=== PATIENT | female | born 1995 | race Caucasian/White ===

== ENCOUNTER 2022-01-16 12:33 | Emergency (ER) | payer MEDICAID ==
[~2022-01-16] VITALS: Ht 160 cm; Wt 81.6 kg
[2022-01-16 13:01] VITALS: BP_SYST 114
[2022-01-16] MEDS ORDERED: ZIPRASIDONE HCL 20 MG CAPSULE (GEODON) PO ONE (13:15)
[2022-01-16 13:38] LABS: BASOPHILS % (AUTO) 0.4 % (0.0-2.0); EOSINOPHILS # (AUTO) 0.1 K/uL (0.0-0.4); EOSINOPHILS % (AUTO) 1.1 % (0.0-4.0); HEMATOCRIT 40.2 % (36-48); HEMOGLOBIN 13.3 g/dL (12.0-16.0); LYMPHOCYTES # (AUTO) 1.2 K/uL (1.0-5.5); MEAN CORPUSCULAR HEMOGLOBIN 28 pg (27-31); MEAN CORPUSCULAR HGB CONC 33 % (32-36); MEAN CORPUSCULAR VOLUME 85 fL (79.0-98.0); MONOCYTES # (AUTO) 0.4 K/uL (0.0-1.0); NEUTROPHILS # (AUTO) 5.4 K/uL (1.8-7.7); NEUTROPHILS % (AUTO) 75.5 % (40.0-70.0); PLATELET COUNT (AUTO) 325 K/uL (130-430); RED BLOOD CELL COUNT(AUTO) 4.72 MIL/uL (4.2-6.2); RED CELL DISTRIBUTION WIDTH 17.2 % (9.0-15.0); WHITE BLOOD COUNT (AUTO) 7.2 K/uL (4.8-10.8)
[2022-01-16 13:41] LABS: CALCIUM 7.9 mg/dL (8.4-11.0); CREATININE 0.71 mg/dL (0.55-1.30); POTASSIUM 3.5 mmol/L (3.5-5.1)
[2022-01-16 13:46] LABS: TOTAL BILIRUBIN 0.3 mg/dL (0.0-1.0)
[2022-01-16 18:44] LABS: BARBITURATE, URINE NEGATIVE (NEG <=200); URINE AMPHETAMINE NEGATIVE (NEG <=500)
[2022-01-16 18:45] LABS: BENZODIAZEPINE, URINE NEGATIVE (NEG <=150); CANNABINOID, URINE NEGATIVE (NEG <=50); COCAINE, URINE NEGATIVE (NEG <=150); METHAMPHETAMINES SCREEN,URINE NEGATIVE (NEG <=500); OPIATE, URINE NEGATIVE (NEG <=100); PHENCYCLIDINE SCREEN,URINE NEGATIVE (NEG <=25); UR TRICYCLIC ANTIDEPRESSANTS NEGATIVE (NEG <=300); URINE METHADONE NEGATIVE (NEG <=200); URINE OXYCODONE SCREEN NEGATIVE (NEG <=100); URINE PROPOXYPHENE SCREEN NEGATIVE (NEG <=300)
[2022-01-16 20:49] VITALS: BP_SYST 112
== END 2022-01-16 20:48 ==
LOC: SED 12:33
DX: R44.0 Auditory hallucinations (principal); Z20.822 Contact with and (suspected) exposure to COVID-19
CPT/HCPCS: 36415; 80053; 80307; 85025; 87426; 99285; G0482

== ENCOUNTER 2022-04-25 14:24 | Emergency (ER) | payer MEDICAID ==
[~2022-04-25] VITALS: Ht 162.6 cm; Wt 86.2 kg
[2022-04-25 14:25] VITALS: BP_SYST 156
--- NOTE | 2022-04-25 14:35 | NUR ---
Patient triaged and placed in waiting room. VSS and patient appears in no acute distress at this time. Accompanied by SELF, awaiting available bed, and MD notified of need for MSE.
--- NOTE | 2022-04-25 14:45 | NUR ---
PT STATES SHE HAD A BLOOD TEST AT HER PMD'S OFFICE, STATES THEY CALLED HER TO TELL HER SHE IS + FOR SYPHILLIS AND TO COME TO ER FOR TREATMENT. PT DENIES ANY SORES BUT THINKS SHE HAS IT IN HER MOUTH. NO ORAL SORES SEEN. PT STATES SHE IS NERVOUS ABOUT HAVING AN STD AND WANTS TO BE TREATED.
--- NOTE | 2022-04-25 15:10 | NUR ---
DR PUENTES TO TRIAGE ROOM TO EVALUATE PT.
[2022-04-25] MEDS ORDERED: PENICILLIN G BENZATHINE 1.2 MMU/2 ML SYR IM ONE (15:30)
[2022-04-25] MEDS ORDERED: TRAZ-250 PO (15:32)
[2022-04-25] MEDS ORDERED: GEO20 PO (15:32)
--- NOTE | 2022-04-25 15:59 | NUR ---
Assisted primary nurse in discharge of Patient gave written and verbal discharge instructions and verbalizes understanding. ER MD discussed with patient the results and treatment provided. Patient in stable condition. ID arm band removed. Opportunity for questions provided and answered. Medication side effect fact sheet provided.
[2022-04-25 16:00] VITALS: BP_SYST 156
== END 2022-04-25 15:59 | disposition home or self-care (01) ==
LOC: SED 14:24
DX: A53.9 Syphilis, unspecified (principal); Z76.0 Encounter for issue of repeat prescription; R53.1 Weakness; Z79.899 Other long term (current) drug therapy
CPT/HCPCS: 99283; 96372; J0561

== ENCOUNTER 2022-06-20 14:32 | Emergency (ER) | payer MEDICAID ==
[~2022-06-20] VITALS: Ht 162.6 cm; Wt 90.7 kg
[2022-06-20 14:32] VITALS: BP_SYST 139
[~2022-06-20 14:32] MED LIST: GEO20 PO; TRAZ-250 PO
--- NOTE | 2022-06-20 14:35 | NUR ---
BROUGHT BACK TO BED #5 AND TRIAGED. REPORT GIVEN TO MANA
--- NOTE | 2022-06-20 14:50 | NUR ---
PT BIB SELF AWAKE AND ALERT, AOX4. PT C/O BEING LOW ON HER PYSCH MED AND HAVEN'T HAD ANY MED FOR THE LAST ALEXANDRA. PT STATES SHE HAS BEEN HEARING VOICES. PT DENIES THE VOICES TELL HER TO DO ANYTHING, SHE STATES THE VOICES SPEAK A FOREIGN LANGUAGE. PT DENIES N/V.
--- NOTE | 2022-06-20 14:59 | NUR ---
MD DR SOLOMON AT BEDSIDE
[2022-06-20] MEDS ORDERED: TRAZ-250 PO (15:04)
[2022-06-20] MEDS ORDERED: GEO20 PO (15:04)
[2022-06-20 15:19] VITALS: BP_SYST 139
--- NOTE | 2022-06-20 15:19 | NUR ---
Patient given written and verbal discharge instructions and verbalizes understanding. ER MD discussed with patient the results and treatment provided. Patient in stable condition. ID arm band removed. Rx of SHANELL AND JENSEN given. Patient educated on pain management and to follow up with PMD. Pain Scale 0/10 Opportunity for questions provided and answered. Medication side effect fact sheet provided.
== END 2022-06-20 15:19 | disposition home or self-care (01) ==
LOC: SED 14:32
DX: Z76.0 Encounter for issue of repeat prescription (principal)
CPT/HCPCS: 99281

== ENCOUNTER 2022-06-27 14:21 | Emergency (ER) | payer MEDICAID ==
[~2022-06-27] VITALS: Ht 162.6 cm; Wt 90.7 kg
[2022-06-27 14:25] VITALS: BP_SYST 123
--- NOTE | 2022-06-27 14:30 | NUR ---
Patient triaged and placed in waiting room. VSS and patient appears in no acute distress at this time. Accompanied by self, awaiting available bed, and MD notified of need for MSE.
--- NOTE | 2022-06-27 14:50 | NUR ---
PT STATES THAT SHE HAS HAD SYPHALLIS FOR LAST 2 MONTHS, NOW SENT HERE BY PMD TO GET TREATMENT.
[2022-06-27] MEDS ORDERED: PENICILLIN G BENZATHINE 1.2 MMU/2 ML SYR IM ONE ×2 (16:30→18:36)
--- NOTE | 2022-06-27 16:55 | NUR ---
DR SOLOMON OUT TO TRIAGE ROOM TO EVALUATE PT.
[2022-06-27] MEDS ORDERED: IBUP-1969 PO (17:42)
[2022-06-27] MEDS ORDERED: HYDR-3917 PO (17:42)
--- NOTE | 2022-06-27 18:01 | NUR ---
BROUGHT BACK TO BED #6 AND WILL ASSUME CARE.
--- NOTE | 2022-06-27 18:27 | NUR ---
Patient given written and verbal discharge instructions and verbalizes understanding. ER MD discussed with patient the results and treatment provided. Patient in stable condition. ID arm band removed. Rx of NORCO, IBUPROFEN given. Patient educated on pain management and to follow up with PMD. Pain Scale 0/10. Opportunity for questions provided and answered. Medication side effect fact sheet provided.
--- NOTE | 2022-06-27 18:48 | NUR ---
PT REQUESTED AN UBER TO GET HOME, STIVEN ASHLEY DELGADO NOTIFIED AND WILL CALL. PT WILL BE WAITING IN WAITING ROOM FOR UBER [place]DRESS OF [address] [place] [id number]
== END 2022-06-27 18:46 | disposition home or self-care (01) ==
LOC: SED 14:21
DX: M25.572 Pain in left ankle and joints of left foot (principal); A53.9 Syphilis, unspecified; Z79.899 Other long term (current) drug therapy
CPT/HCPCS: 99283; 73610; 96372; J0561

== ENCOUNTER 2022-08-03 16:26 | Emergency (ER) | payer MEDICAID ==
[~2022-08-03] VITALS: Ht 162.6 cm; Wt 90.7 kg
[~2022-08-03 16:26] MED LIST changes: +HYDR-3917 PO; +IBUP-1969 PO
[2022-08-03 16:29] VITALS: BP_SYST 128
--- NOTE | 2022-08-03 16:35 | NUR ---
Patient triaged and placed in waiting room. VSS and patient appears in no acute distress at this time. Accompanied by STAFF, awaiting available bed, and DR. NEHA PÉREZ notified of need for MSE.
--- NOTE | 2022-08-03 16:56 | NUR ---
ER Dr. SOLOMON IN WAITING ROOM examining patient.
[2022-08-03] MEDS ORDERED: HYDR-3917 PO (17:29)
[2022-08-03] MEDS ORDERED: IBUP-1969 PO (17:29)
--- NOTE | 2022-08-03 18:08 | NUR ---
PATIENT CAME FROM HOME C/O SEVERE 9/10 RIGHT ANKLE PAIN. PT STATES SHE HAD SX ON RT ANKLE IN 2019. HAS HX OF PSYCHIATRIC DISORDERS. LIVES IN INTERMEDIATE. IS A&OX4 CALM AND COOPERATIVE. CARE TO BE PROVIDED ORDERED.
--- NOTE | 2022-08-03 18:09 | NUR ---
Patient given written and verbal discharge instructions and verbalizes understanding. ER DR. NEHA PÉREZ discussed with patient the results and treatment provided. Patient in stable condition. ID arm band removed. IV catheter removed intact and dressing applied, no active bleeding. Rx of HYDROCODONE, IBUPROFEN given. Patient educated on pain management and to follow up with PMD. Pain Scale 7/10. Opportunity for questions provided and answered. Medication side effect fact sheet provided.
== END 2022-08-03 18:07 | disposition home or self-care (01) ==
LOC: SED 16:26
DX: S93.402A Sprain of unspecified ligament of left ankle, initial encounter (principal); Z79.899 Other long term (current) drug therapy; X58.XXXA Exposure to other specified factors, initial encounter; Y93.89 Activity, other specified; Y92.89 Other specified places as the place of occurrence of the external cause; Y99.8 Other external cause status
CPT/HCPCS: 99283

== ENCOUNTER 2022-08-13 11:22 | Emergency (ER) | payer MEDICAID ==
[~2022-08-13] VITALS: Ht 162.6 cm; Wt 90.7 kg
[2022-08-13 11:25] VITALS: BP_SYST 108
--- NOTE | 2022-08-13 12:20 | NUR ---
MD LUO IN TRIAGE FOR MSE.
[2022-08-13] MEDS ORDERED: PENICILLIN G BENZATHINE 1.2 MMU/2 ML SYR IM ONE (12:30)
--- NOTE | 2022-08-13 12:32 | NUR ---
Patient given written and verbal discharge instructions and verbalizes understanding. ER MD discussed with patient the results and treatment provided. Patient in stable condition. ID arm band removed. IV catheter removed intact and dressing applied, no active bleeding. Rx of N/A given. Patient educated on pain management and to follow up with PMD. Pain Scale 0/10. Opportunity for questions provided and answered. Medication side effect fact sheet provided.
[2022-08-13 12:36] VITALS: BP_SYST 124
== END 2022-08-13 12:36 | disposition home or self-care (01) ==
LOC: SED 11:22
DX: A53.9 Syphilis, unspecified (principal); Z79.899 Other long term (current) drug therapy
CPT/HCPCS: 99283; 96372; J0561

== ENCOUNTER 2022-09-21 08:21 | Emergency (ER) | payer MEDICAID ==
[~2022-09-21] VITALS: Ht 157.5 cm; Wt 79.4 kg
[2022-09-21 08:32] VITALS: BP_SYST 145
[2022-09-21] MEDS ORDERED: ZIPRASIDONE HCL 20 MG CAPSULE (GEODON) PO ONE (08:45)
[2022-09-21] MEDS ORDERED: GEO20 PO (09:21)
[2022-09-21] MEDS ORDERED: VIS50 PO (09:21)
== END 2022-09-21 09:31 | disposition home or self-care (01) ==
LOC: SED 08:21
DX: Z76.0 Encounter for issue of repeat prescription (principal); Z86.59 Personal history of other mental and behavioral disorders; Z79.899 Other long term (current) drug therapy
CPT/HCPCS: 99283

== ENCOUNTER 2022-10-01 16:22 | Emergency (ER) | payer MEDICAID ==
[~2022-10-01 16:22] MED LIST changes: +VIS50 PO
--- NOTE | 2022-10-01 16:35 | NUR ---
Called pt x 1 , no answer
--- NOTE | 2022-10-01 16:42 | NUR ---
Called pt x 2 , no answer
--- NOTE | 2022-10-01 16:50 | NUR ---
Called patient x 3 , pt arrived to ER screaming and coursing ,states she want to know the name of the dental front office assistant girl, security was called, pt continues screaming , states "she has ankle pain", Marylin director speaking with patient ,security present. pt left ER
== END 2022-10-01 16:50 | disposition left against medical advice (07) ==
LOC: SED 16:22
DX: M25.572 Pain in left ankle and joints of left foot (principal); Z53.21 Procedure and treatment not carried out due to patient leaving prior to being seen by health care provider